=== PATIENT | male | born 1995 | race Hispanic/Latino ===

== ENCOUNTER 2020-04-06 | Emergency (ER) | payer OTHER, BC ==
[~2020-04-06] MED LIST: NAPROSYN500 MG PO; SOLU-MEDROL1000 MG IV
[2020-04-06] MEDS ORDERED: [UNRECOGNIZED DRUG - OTHER] (16:37)
[2020-04-06 16:55] LABS: HEMATOCRIT 42.1 % (39.0-50.0); HEMOGLOBIN 13.6 g/dl (14.0-18.0); IMMATURE GRANULOCYTES 0.4 % (0.0-5.0); MEAN CELL VOLUME 85.4 fL CALC (80.0-100.0); MEAN CORPUSCULAR HGB 27.6 pG CALC (26.0-32.0); MEAN CORPUSCULAR HGB CONC 32.3 g/dL CAL (32.0-36.0); NEUT# 8.19 thou/uL (1.82-7.42); RED BLOOD COUNT 4.93 mill/uL (4.70-6.10); RED CELL DISTRI WIDTH 13.9 % (11.5-15.5)
[2020-04-06 17:26] LABS: ALBUMIN 4.3 g/dL (3.2-5.0); ALKALINE PHOSPHATASE 84 u/l (38-126); ANION GAP 11 (6-22 (CALC)); BUN 17 mg/dL (9-20); BUN/CREATININE RATIO 19 (12-20 (CALC)); CARBON DIOXIDE 24 mmol/l (22-30); CHLORIDE 107 mmol/l (95-108); CREATININE 0.9 mg/dL (0.7-1.3); GFR > 60 ML/MIN (>=60 (CALC)); GFR FOR AFR.AMER. > 60 ML/MIN (>=60 (CALC)); LIPASE 66 u/l (23-300); POTASSIUM 4.4 mmol/l (3.5-5.1); SGOT/AST 33 u/l (17-59); SODIUM 138 mmol/l (137-146); TOTAL PROTEIN 8.1 g/dL (6.3-8.2)
== END 2020-04-06 18:44 | disposition home or self-care (01) | DRG 552 ==
PROVIDERS: Family Medicine
DX: S16.1XXA Strain of muscle, fascia and tendon at neck level, initial encounter (principal); S29.012A Strain of muscle and tendon of back wall of thorax, initial encounter; V49.40XA Driver injured in collision with unspecified motor vehicles in traffic accident, initial encounter
CPT/HCPCS: L0120

== ENCOUNTER 2021-11-25 10:28 | Emergency (ER) | payer BC ==
[~2021-11-25] VITALS: Ht 190.5 cm; Wt 168.0 kg
[~2021-11-25 10:28] MED LIST changes: +[UNRECOGNIZED DRUG - OTHER]
[2021-11-25 10:54] LABS: HEMATOCRIT 45.7 % (39.0-50.0); IMMATURE GRANULOCYTES 0.3 % (0.0-5.0); MEAN CELL VOLUME 86.4 fL CALC (80.0-100.0); MEAN CORPUSCULAR HGB 28.4 pG CALC (26.0-32.0); MEAN CORPUSCULAR HGB CONC 32.8 g/dL CAL (32.0-36.0); NEUT# 10.12 thou/uL (1.82-7.42); RED BLOOD COUNT 5.29 mill/uL (4.70-6.10); RED CELL DISTRI WIDTH 13.6 % (11.5-15.5)
[2021-11-25 11:10] LABS: ALBUMIN 4.3 g/dL (3.2-5.0); ALKALINE PHOSPHATASE 94 u/l (38-126); ANION GAP 11 (6-22 (CALC)); BILIRUBIN, TOTAL 1.1 mg/dL (0.0-1.4); BUN 18 mg/dL (9-20); BUN/CREATININE RATIO 18 (12-20 (CALC)); CARBON DIOXIDE 27 mmol/l (22-30); CHLORIDE 106 mmol/l (95-108); GFR > 60 ML/MIN (>=60 (CALC)); GFR FOR AFR.AMER. > 60 ML/MIN (>=60 (CALC)); SGOT/AST 24 u/l (17-59); SODIUM 140 mmol/l (137-146); TOTAL PROTEIN 8.4 g/dL (6.3-8.2)
[2021-11-25 12:01] LABS: URINE BILIRUBIN - DIPSTICK NEGATIVE (NEGATIVE); URINE BLOOD DIPSTICK NEGATIVE (NEGATIVE); URINE COLOR YELLOW; URINE GLUCOSE - DIPSTICK NEGATIVE (NEGATIVE); URINE KETONE NEGATIVE (NEGATIVE); URINE LEUK ESTERASE NEGATIVE (NEGATIVE); URINE PROTEIN - DIPSTICK NEGATIVE (NEG-TRACE); URINE SPECIFIC GRAVITY >=1.030
[2021-11-25 12:04] LABS: URINE NITRITE - DIPSTICK NEGATIVE (Negative)
[2021-11-25 12:49] VITALS: BP 123/69
== END 2021-11-25 12:50 | disposition home or self-care (01) | DRG 60 ==
LOC: ED 10:28
PROVIDERS: Family Medicine
DX: G35 Multiple sclerosis (principal)

== ENCOUNTER 2022-05-29 21:40 | Observation (INO) | payer BC ==
[~2022-05-29] VITALS: Ht 190.5 cm; Wt 172.0 kg
[~2022-05-29 21:40] MED LIST changes: +ZEPOSIA0.92 MG PO; -[UNRECOGNIZED DRUG - OTHER]
[2022-05-29 21:51] VITALS: BP 110/81
--- NOTE | 2022-05-29 21:56 | NUR ---
PT TRANSFERRED TO ROOM 16 FROM EMS STRETCHER, NAD NOTED. A&OX3
[2022-05-29 22:00] VITALS: BP 131/84
--- NOTE | 2022-05-29 22:21 | NUR ---
REPORT RECEIVED FROM IVAN FALK.
--- NOTE | 2022-05-29 22:25 | NUR ---
PT IN ROOM ON MONITOR WITH FAMILY AT BEDSIDE, AWAITING LAB RESULTS, WILL CONT TO MONITOR.
[2022-05-29 23:00] VITALS: BP 134/90
[2022-05-29 23:32] LABS: HEMATOCRIT 43.2 % (39.0-50.0); HEMOGLOBIN 14.3 g/dl (14.0-18.0); IMMATURE GRANULOCYTES 0.6 % (0.0-5.0); MEAN CELL VOLUME 84.5 fL CALC (80.0-100.0); MEAN CORPUSCULAR HGB CONC 33.1 g/dL CAL (32.0-36.0); NEUT# 6.29 thou/uL (1.82-7.42); RED BLOOD COUNT 5.11 mill/uL (4.70-6.10); RED CELL DISTRI WIDTH 13.5 % (11.5-15.5)
--- NOTE | 2022-05-29 23:36 | NUR ---
PT IN ROOM ON MONITOR RECEIVING IV FLUIDS, PT POSITIVE FOR COVID-19 AND HAS BEEN PLACED ON AIRBORNE PRECAUTIONS, AWAITING LAB AND XRAY RESULTS, WILL CONT TO MONITOR.
[2022-05-29 23:47] LABS: ALBUMIN 4.1 g/dL (3.2-5.0); ALKALINE PHOSPHATASE 82 u/l (38-126); ANION GAP 13 (6-22 (CALC)); BILIRUBIN, TOTAL 0.9 mg/dL (0.0-1.4); BUN 14 mg/dL (9-20); BUN/CREATININE RATIO 15 (12-20 (CALC)); CARBON DIOXIDE 23 mmol/l (22-30); CHLORIDE 104 mmol/l (95-108); GFR FOR AFR.AMER. > 60 ML/MIN (>=60 (CALC)); GFR OTHER RACES > 60 ML/MIN (>=60 (CALC)); POTASSIUM 3.8 mmol/l (3.5-5.1); SODIUM 135 mmol/l (137-146); TOTAL PROTEIN 7.9 g/dL (6.3-8.2)
[2022-05-29 23:55] LABS: SGOT/AST 44 u/l (17-59)
[2022-05-29 23:56] LABS: MYOGLOBIN 73 ng/mL (0 - 121)
--- NOTE | 2022-05-30 00:26 | NUR ---
PT IN ROOM ON MONITOR AWAITING RESULTS, WILL CONT TO MONITOR.
--- NOTE | 2022-05-30 01:11 | NUR ---
PT IN ROOM ON MONITOR WITH FAMILY AT BEDSIDE, PT AWAITING LAB RESULTS, WILL CONT TO MONITOR.
[2022-05-30 01:25] LABS: URINE BILIRUBIN - DIPSTICK NEGATIVE (NEGATIVE); URINE COLOR YELLOW; URINE GLUCOSE - DIPSTICK NEGATIVE (NEGATIVE); URINE KETONE TRACE mg/dL (NEGATIVE); URINE LEUK ESTERASE NEGATIVE (NEGATIVE); URINE PROTEIN - DIPSTICK NEGATIVE (NEG-TRACE); URINE SPECIFIC GRAVITY >=1.030
[2022-05-30 01:37] LABS: URINE BLOOD DIPSTICK NEGATIVE (NEGATIVE); URINE NITRITE - DIPSTICK NEGATIVE (Negative)
[2022-05-30] MEDS ORDERED: PAXLOVID PO (01:40)
--- NOTE | 2022-05-30 02:43 | NUR ---
WHEN ATTEMPTING TO D/C PATIENT IS SO WEAK FROM FEVER AND MS EXACERBATION THAT HE COULD NOT STAND EVEN WITH ASSISTANCE, AT THIS TIME PT IS NOT SAFE FOR D/C, PROVIDER NOTIFIED, CT SCAN ORDERED, WILL DISCUSS COURSE OF ACTION FOLLOWING CT SCAN RESULTS.
--- NOTE | 2022-05-30 03:30 | NUR ---
PT TO BE ADMITTED.
--- NOTE | 2022-05-30 04:19 | NUR ---
REPORT GIVEN TO MAGGY FALK.
--- NOTE | 2022-05-30 04:22 | NUR ---
Admission Note Report Given to: MAGGY RN Transported by: Wheelchair X Stretcher Transported with: X Nurse Transporter X Patent IV O2 X Resist Coater Developer Location: ICU X MS2 PT ADMITTED TO [facility], TRANSPORTED TO FLOOR VIA STRETCHER, ON TELE, BY ANUJ RN, REPORT GIVEN AT BEDSIDE TO MAGGY FALK.
--- NOTE | 2022-05-30 05:05 | NUR ---
ARRIVED VIS STRETCHER ACCOMPANIED BY ER ANUJ RN AND PATIENT'S MOTHER. TRANSFERED TO [facility] ORIENTED TO ROOM AND PLAN OFCARE
[2022-05-30 05:21] VITALS: BP 133/78
--- NOTE | 2022-05-30 06:00 | NUR ---
AWAKE AND ALERT ORIENTED X4 DENIES PAIN OR DISCOMFORT RESPIRATIONS EVEN AND UNLABORER PO FLUIDS TOLERATED WELLUSED THE URINAL VOIDED 150 CC CM CLEAR URINE.
[2022-05-30 06:26] VITALS: BP 120/76
--- NOTE | 2022-05-30 07:00 | NUR ---
REPORT RECIEVED FROM ANALYST SALESAPRON CLEANER
--- NOTE | 2022-05-30 07:38 | NUR ---
PT RESTING IN BED. STATES NO PAIN BUT WEAKNESS. ASSESSMENT ALLOWED. PT IS A&O X3. ABLE TO OBEY COMMANDS, CAN TURN WITHOUT ASSISTANCE. TELE MONITOR IN PLACE, CONTINOUS MONITORING PER ED. IV RAC 20G INFUSING IVF PER EMAR. BREAHTING EVEN AND UNLABORED. LUNG SOUNDS CLEAR UPPER/LOWER LOBES ANTERIOR AND POSTERIOR. TEMP: 99, TYNENOL GIVEN SEE EMAR. ENCOURAGED PT USE OF CALL DE OLIVEIRA SYSTEM. FALL/SAFTEY PRECAUTION IN PLACE. CALL LIGHT WITHIN REACH.
--- NOTE | 2022-05-30 07:43 | NUR ---
Patient is screened for PT intervention and would benefit if medical agrees
--- NOTE | 2022-05-30 08:50 | NUR ---
REASSESED TEMP: 98.0
[2022-05-30 10:13] VITALS: BP 125/78
--- NOTE | 2022-05-30 12:17 | NUR ---
PT RESTIGN IN BED WATCHING TV WITH FAMILY AT BEDSIDE UPON ENTERING ROOM. STATES NO PAIN. TELE MONITOR IN PLACE, CONTINOUS MONITORING PER ED. IVF INFUSING PER EMAR. FALL/SAFTEY PERCAUTION IN PLACE. CALL LIGHT WITHIN REACH.
--- NOTE | 2022-05-30 12:22 | NUR ---
PT EATING LUNCH. STATES NO FEELING OF N/V. PSIN REMAINS 01/03 IN ABD. BOWELS ACTIVE X4. TENDER TO TOUCH. FALL/SAFTEY PRECAUTION IN PLACE. CALL LIGHT WITHIN REACH
--- NOTE | 2022-05-30 13:41 | NUR ---
PT AT BEDSIDE
[2022-05-30 15:19] VITALS: BP 125/79
[2022-05-30 15:48] VITALS: BP 126/75
--- NOTE | 2022-05-30 16:00 | NUR ---
NO TELE READING, PATIENT OFF TELE FOR SHOWER.
--- NOTE | 2022-05-30 16:00 | NUR ---
RECEIVED REPORT FROM RN. PATIENT RESTING IN BED AT THIS TIME. PATIENT IS ABLE TO COMMUNICATE NEEDS AND DENIES ANY PAIN OR DISCOMFORT AT THIS TIME. PATIENT IS A&O. BED IN LOWEST POSITION, CALL LIGHT WITHIN REACH.
[2022-05-30 19:01] VITALS: BP 124/68
--- NOTE | 2022-05-30 20:00 | NUR ---
PT IN BED AWAKE, PT STATES NO PAIN, NO DISTRESS NOTED, BED ALARM ON AND IN LOW POSITION, CALL LIGHT IN REACH
--- NOTE | 2022-05-31 | NUR ---
PT IN BED ASLEEP, NO DISTRESS NOTED, CALL LIGHT IN REACH
[2022-05-31 00:13] VITALS: BP 114/69
[2022-05-31 04:04] VITALS: BP 112/71
[2022-05-31 05:21] LABS: HEMATOCRIT 39.1 % (39.0-50.0); HEMOGLOBIN 13.4 g/dl (14.0-18.0); MEAN CELL VOLUME 83.5 fL CALC (80.0-100.0); MEAN CORPUSCULAR HGB 28.6 pG CALC (26.0-32.0); MEAN CORPUSCULAR HGB CONC 34.3 g/dL CAL (32.0-36.0); RED BLOOD COUNT 4.68 mill/uL (4.70-6.10)
[2022-05-31 05:37] LABS: ANION GAP 14 (6-22 (CALC)); BUN 12 mg/dL (9-20); BUN/CREATININE RATIO 18 (12-20 (CALC)); CARBON DIOXIDE 20 mmol/l (22-30); CHLORIDE 110 mmol/l (95-108); CREATININE 0.7 mg/dL (0.7-1.3); GFR FOR AFR.AMER. > 60 ML/MIN (>=60 (CALC)); GFR OTHER RACES > 60 ML/MIN (>=60 (CALC)); POTASSIUM 4.5 mmol/l (3.5-5.1); SODIUM 139 mmol/l (137-146)
[2022-05-31 06:48] VITALS: BP 106/58
[2022-05-31 07:03] VITALS: BP 106/58
--- NOTE | 2022-05-31 08:00 | NUR ---
GOT REPORT FROM TRIM MACHINE ADJUSTER NURSE. PATIENT ASSESSED. NO SXS OF DISTRESS. PATIENT SITTING UP ON SIDE OF BED AND FINISHED BREAKFAST. PATIENT GIVEN MEDICATION. I ARRANGED BEDSIDE TABLE, CALL LIGHT AND PHONE TO BE WITH IN REACH OF PATIENT. PATIENT WAS TANGLED WITH IV LINE AND TELE BOX CORDS.SITUATED PATIENT LINES. ADVISED PATIENT TO CALL IF HE NEEDS ANYTHING. PATIENT VERBALIZED UNDERSTANDING.
[2022-05-31] MEDS ORDERED: PREDNISONE10 MG PO (10:34)
--- NOTE | 2022-05-31 11:16 | NUR ---
Patient presents sitting EOB. He tells me he is back to baseline. He is able to get up with FWW and tells me he has FWW at home. He has met his inpatient goals and will follow up as an outpatient
[2022-05-31 11:58] VITALS: BP 115/70
--- NOTE | 2022-05-31 14:35 | NUR ---
Discharge instructions given. Patient verbalizes understanding of same. Discharged in stable condition via Wheelchair to Home with family. All belongings sent with pt.
== END 2022-05-31 14:35 | disposition home or self-care (01) | DRG 58 ==
LOC: ED 21:40 → ED-I 05-30 03:44 → ED 05-30 04:00 → MS2 05-30 04:01
PROVIDERS: Emergency Medicine; ADMIT Hospitalist; ATTEND Hospitalist
DX: G35 Multiple sclerosis (principal); U07.1 COVID-19; Z68.42 Body mass index [BMI] 45.0-49.9, adult; H53.8 Other visual disturbances; E66.9 Obesity, unspecified; Z91.81 History of falling
CPT/HCPCS: G0378; J1650